=== PATIENT | male | born 1965 | race Caucasian/White ===

== ENCOUNTER 2016-02-21 21:20 | Emergency (ER) | payer OTHER ==
[~2016-02-21] VITALS: Ht 175.3 cm; Wt 70.0 kg
[2016-02-21 21:34] VITALS: BP 130/91; PULSE 89; RESP 16; TEMP 98.2; O2SAT 95
[2016-02-21] MEDS ORDERED: CEPHALEXIN MONOHYDRATE 500 MG CAP PO ONE (22:00)
--- NOTE | 2016-02-21 22:00 | PD ---
HPI Chief Complaint: Medical Clearance Time Seen by Provider: 21:32 Travel History International Travel<30 days: No Contact w/Intl Traveler<30days: No Traveled to known affect area: No History of Present Illness HPI The patient is 50 year old male who presents to the [facility] emergency department with a history of being placed under arrest prior to arrival. The patient reports that he does not want to talk about the events surrounding the arrest. The patient was brought in by the police in handcuffs for medical evaluation as a mounted police reports that he fell striking his face on the sidewalk, and then the patient again struck his face on a fence. The patient is noted to have blood that is dried on his face. The patient is noted to have a small laceration along the right side of the upper forehead area. He has no active bleeding at this time. The patient is noted to have an area of swelling to the left side of the forehead. The patient denies having any loss of consciousness. The patient denies having any neck pain, paresthesias, or extremity weakness or pain. The patient reports that he does not want to be evaluated, however he is being cooperative. The patient apparently exposed to officer's to his blood and is being evaluated for possible hepatitis or HIV. The patient consented to this. The patient denies having any known past medical history, however he reports that he last saw a primary care physician approximately 30 years ago. The patient denies any history of fever, cough, congestion, neck pain, chest pain, shortness of breath, abdominal pain, vomiting , diarrhea, urinary symptoms, or other neurologic symptoms. Tetanus is reportedly up to date, reportedly updated 3 years ago. [facility] Past Medical History Narrative Medical The patient's past medical history is reportedly none. Medical History: Denies Significant Hx Tetanus Vaccination: Never Vaccinated Influenza Vaccination: No Past Surgical History Narrative Surgical The patient's past surgical history is reportedly none. Surgical History: No Previous Surgery Social History Alcohol Use: Yes (fifth of liquor every 2-3 days) Tobacco Use: Yes (one pack per day) Substance Use: No Allergies-Medications (Allergen,Severity, Reaction): Coded Allergies: No Known Allergies (Unverified , 02/21/16) Reported Meds & Prescriptions Reported Meds & Active Scripts Active No Active Prescriptions or Reported Medications Review of Systems General / Constitutional: No: Fever Eyes: No: Visual changes HENT: Positive: Nosebleed, No: Headaches, Neck Stiffness, Neck Pain Cardiovascular: No: Chest Pain or Discomfort Respiratory: No: Shortness of Breath Gastrointestinal: No: Abdominal Pain Genitourinary: No: Dysuria Musculoskeletal: No: Pain Skin: No Rash Neurologic: No: Weakness, Focal Abnormalities, Change in Mentation, Slurred Speech, Paresthesia, Sensory Disturbance Psychiatric: No: Depression Endocrine: No: Polydipsia Hematologic/Lymphatic: No: Easy Bruising Physical Exam Narrative General: The patient is a well-developed well-nourished male in no acute distress. Head and Neck exam: Head is noted to have evidence of trauma along the forehead and chin. The patient has malaise side of his forehead a hematoma noted. There is no step- off or crepitus. The patient along the right side of the forehead is noted to have a tiny laceration without any active bleeding, dried blood present surrounding this area. No increased facial bone mobility noted on palpation. Eyes: EOMI, pupils are equal round and reactive to light. Nose: Midline septum with dried blood present in bilateral nares without any evidence of septal hematoma. Mouth: Dentition unremarkable. Moist mucus membranes. Posterior oropharynx is not erythematous. No tonsillar hypertrophy. Uvula midline. Airway patent. The patient has an abrasion noted along the left side of his chin. Neck: The trachea appears midline. No spinous process tenderness to palpation. No step-off or crepitus, no erythema or ecchymosis. Cardiovascular: Regular rate and rhythm without murmurs, gallops, or rubs. No pulse deficit to the extremities. Lungs: Clear to auscultation bilaterally. No wheezes, rhonchi, or rales. No chest wall tenderness to palpation. No erythema or ecchymosis noted. No crepitus , step off, or flail segment noted. Abdomen: Soft, without tenderness to palpation in all 4 quadrants of the abdomen. No guarding, rebound, or rigidity. Negative Mcbrides sign. Extremities: No clubbing, cyanosis, or edema. 2+ pulses in all 4 extremities. No extremity tenderness or deformity noted on palpation or passive/ active range of motion, except Back: No spinous process tenderness to palpation. No costovertebral angle tenderness to palpation. No erythema or ecchymosis. Neurologic Exam: Cranial nerves 2-12 were intact on exam. Strength is 5/5 in all 4 extremities. No sensory deficits noted. Data Data Last Documented VS Vital Signs Date Time Temp Pulse Resp B/P Pulse Ox O2 Delivery O2 Flow Rate FiO2 02/21/16 21:34 98.2 89 16 130/91 95 Orders Cephalexin (Keflex) (02/21/16 22:00) Ct Brain W/O Iv Contrast(Rout) (02/21/16 ) Ct Cerv Spine W/O Contrast (02/21/16 ) Ct Facial Bones W/O Iv Cont (02/21/16 ) Ice/Cold Pack (02/21/16 21:47) Wound Care (02/21/16 21:47) MDM Medical Decision Making Medical Screen Exam Complete: Yes Emergency Medical Condition: Yes Medical Record Reviewed: Yes Differential Diagnosis Intracranial trauma, versus cervical spine trauma, versus facial bone fracture, versus contusions and abrasions Narrative Course During the course of the patients emergency department visit, the patients history, examination, and differential diagnosis were reviewed with the patient. The patient had an ice pack applied to his head. The patient's wounds were cleaned and dressed. The patient reports that his tetanus was last updated 3 years ago. The patient was given Keflex 500 mg by mouth 1 for prevention of infection. A CT scan of the head, neck, facial bones was ordered. Radiology studies were reviewed and remarkable for a CT scan of the head, neck, facial bones that showed no acute abnormality other than soft tissue swelling overlying the left side of the forehead. The patient will be discharged home with instructions to continue to ice the area of swelling, take Tylenol or ibuprofen as needed for discomfort. The patient is resting comfortably and feels better, is alert and in no distress. The patients results and examination findings were discussed with the patient The repeat examination is unremarkable and benign. The history, exam , diagnostic testing, and current condition do not suggest any significant pathology to warrant further testing, continued ED treatment, admission, or surgical evaluation at this point. The vital signs have been stable. The patient does not have uncontrollable pain, intractable vomiting, or other significant symptoms. The patient's condition is stable and appropriate for discharge. The patient will pursue further outpatient evaluation with a primary care physician or other designated or consulting physician as indicated in the discharge instructions. The patient expressed understanding and was agreeable with this plan. Diagnosis Primary Impression: Forehead contusion Qualified Code: S00.83XA - Forehead contusion, initial encounter Additional Impression: Abrasion Referrals: Primary Care Physician 1 week Patient Instructions: Contusion in Adults (ED), General Instructions, Head Injury (ED) Additional Instructions: Take Tylenol or ibuprofen as needed for discomfort. Continue to ice the area of swelling for approximately 10-15 minutes 3-4 times per day. Med/Other Pt SpecificInfo: No Meds Exist/No RX given Scripts No Active Prescriptions or Reported Meds Disposition: [address] LAW ENFORCEMNT Condition: Stable Amber Painter MD Feb 21, 2016 22:00
--- NOTE | 2016-02-21 22:47 | RADRPT ---
EXAM DATE/TIME: 02/21/2016 22:19 [facility] COMPARISON: No previous studies available for comparison. INDICATIONS : Trauma; fall. RADIATION DOSE: 17.33 CTDIvol (mGy) MEDICAL HISTORY : ETOH abuse SURGICAL HISTORY : None. ENCOUNTER: Initial ACUITY: 1 day PAIN SCALE: 0/10 LOCATION: neck TECHNIQUE: Volumetric scanning of the cervical spine was performed. Multiplanar reconstructions in the sagittal, coronal and oblique axial planes were performed. Using automated exposure control and adjustment o f the mA and/or kV according to patient size, radiation dose was kept as low as reasonably achievable to obtain optimal diagnostic quality images. FINDINGS: VERTEBRAE: Normal vertebral body height. ALIGNMENT: No evidence of subluxation. C2-C3: The bony spinal canal is normal in size. No evidence of disc bulge or herniation. The neural forami na are bilaterally patent. C3-C4: The bony spinal canal is normal in size. No evidence of disc bulge or herniation. The neural forami na are bilaterally patent. C4-C5: The bony spinal canal is normal in size. No evidence of disc bulge or herniation. The neural forami na are bilaterally patent. C5-C6: The bony spinal canal is normal in size. No evidence of disc bulge or herniation. The neural forami na are bilaterally patent. C6-C7: The bony spinal canal is normal in size. No evidence of disc bulge or herniation. The neural forami na are bilaterally patent. C7-T1: The bony spinal canal is normal in size. No evidence of disc bulge or herniation. The neural forami na are bilaterally patent. CONCLUSION: Normal examination. Nas Marquez Jr., MD on February 21, 2016 at 22:44 Board Certified Radiologist. This report was verified electronically.
--- NOTE | 2016-02-21 22:48 | RADRPT ---
EXAM DATE/TIME: 02/21/2016 22:19 [facility] COMPARISON: No previous studies available for comparison. INDICATIONS : Trauma; fall. RADIATION DOSE: 56.77 CTDIvol (mGy) MEDICAL HISTORY : ETOH abuse SURGICAL HISTORY : None. ENCOUNTER: Initial ACUITY: 1 day PAIN SCALE: 0/10 LOCATION: cranial TECHNIQUE: Multiple contiguous axial images were obtained of the head. Using automated exposure control and adj ustment of the mA and/or kV according to patient size, radiation dose was kept as low as reasonably a chievable to obtain optimal diagnostic quality images. FINDINGS: CEREBRUM: The ventricles are normal for age. No evidence of midline shift, mass lesion, hemorrhage or acute in farction. No extra-axial fluid collections are seen. POSTERIOR FOSSA: The cerebellum and brainstem are intact. The 4th ventricle is midline. The cerebellopontine angle i s unremarkable. EXTRACRANIAL: The visualized portion of the orbits is intact. Left frontal soft tissue swelling. SKULL: The calvaria is intact. No evidence of skull fracture. CONCLUSION: 1. Left frontal soft tissue swelling. 2. No acute intracranial abnormality. Nas Marquez Jr., MD on February 21, 2016 at 22:46 Board Certified Radiologist. This report was verified electronically.
--- NOTE | 2016-02-21 22:50 | RADRPT ---
EXAM DATE/TIME: 02/21/2016 22:19 [facility] COMPARISON: No previous studies available for comparison. INDICATIONS : Trauma; fall. RADIATION DOSE: 36.81 CTDIvol (mGy) MEDICAL HISTORY : ETOH abuse SURGICAL HISTORY : None. ENCOUNTER: Initial ACUITY: 1 day PAIN SCORE: 0/10 LOCATION: facial TECHNIQUE: Volumetric scanning of the facial bones was performed. Using automated exposure control and adjustme nt of the mA and/or kV according to patient size, radiation dose was kept as low as reasonably achiev able to obtain optimal diagnostic quality images. FINDINGS: ORBITS: The orbital and infraorbital osseous structures are intact. The retroconal structures have a normal configuration. No radiopaque foreign bodies are seen. NASAL BONE: The nasal bone and maxillary spine are intact ZYGOMATIC ARCHES: Symmetric without evidence of fracture. SINUSES: The maxillary, ethmoid and frontal sinuses are intact. No air-fluid levels seen. NASAL CAVITY: The nasal septum is intact and midline. The lacrimal ducts are intact. SOFT TISSUES: No radiopaque foreign bodies seen. Left frontal soft tissue swelling. INTRACRANIAL: No intracranial air seen. CRIBIFORM PLATE: Grossly intact. CONCLUSION: 1. Left frontal soft tissue swelling. Nas Marquez Jr., MD on February 21, 2016 at 22:47 Board Certified Radiologist. This report was verified electronically.
== END 2016-02-22 01:35 ==
LOC: NEPE 21:20
DX: S00.83XA Contusion of other part of head, initial encounter (principal); S00.81XA Abrasion of other part of head, initial encounter; F17.210 Nicotine dependence, cigarettes, uncomplicated; F10.10 Alcohol abuse, uncomplicated; W19.XXXA Unspecified fall, initial encounter; Y92.480 Sidewalk as the place of occurrence of the external cause; Y35.891A Legal intervention involving other specified means, law enforcement official injured, initial encounter; Y93.9 Activity, unspecified; Y99.9 Unspecified external cause status
CPT/HCPCS: 70450; 70486; 72125